=== PATIENT | female | born 1985 | race Caucasian/White ===

== ENCOUNTER → 2020-05-04 | Outpatient (CLI) | payer BC, OTHER ==
[2020-05-04 20:25] LABS: Total Protein,CSF 28 mg/dL (12-60)
[2020-05-04 21:52] LABS: Appearance,CSF Clear; CSF Tube Number 4; CSF Tube Volume 4; Nucleated Cells, CSF 0 u/L (0-5); Red Blood Cell,CSF 0 u/L (0-10)
[2020-05-06 12:37] LABS: IgG - CSF 1.3 mg/dL (0.0 - 3.4); IgG/Albumin Index (CSF) 0.54 (0.00 - 0.77)
== END | disposition home or self-care (01) ==
LOC: LABWHC1 11:46
PROVIDERS: ATTEND Nurse Practitioner Family
DX: R90.82 White matter disease, unspecified (principal); R42 Dizziness and giddiness; R94.02 Abnormal brain scan
CPT/HCPCS: 36415; 82040; 82042; 82784; 83916; 84157; 86255; 87801; 88108; 89050

== ENCOUNTER 2020-05-05 17:52 | Observation (INO) | payer BC, OTHER ==
[2020-05-05] MEDS ORDERED: SODIUM CHLORIDE 0.9% 1,000 ML IV STA ×3 (19:01→20:46)
[2020-05-05] MEDS ORDERED: CAFFEINE CITRATE 500 MG in DEXTROSE 5% IN WATER 50 ML IVPB STA ×2 (19:03)
[2020-05-05] MEDS ORDERED: KETOROLAC 15 MG/ML 1 ML VIAL IVP STA (19:04)
[2020-05-05] MEDS ORDERED: ORPHENADRINE 30 MG/ML 2 ML VIAL IVP STA (19:05)
--- NOTE | 2020-05-05 19:14 | ED ---
Back Pain HPI - General Source: patient, RN notes reviewed Limitations: no limitations - History of Present Illness MD Complaint: back pain, other <Tyree Austin - Last Filed: 05/05/20 21:15> <Andrew Orta - Last Filed: 05/05/20 23:01> - General Chief Complaint: Back Pain/Injury Stated Complaint: back pain/head ache Time Seen by Provider: 05/05/20 18:45 - History of Present Illness Initial Comments: This is a 35-year-old female presents with complaints of severe back pain and headache tonight. She states she had a lumbar puncture done yesterday and a workup for ruling out multiple sclerosis. She states she has severe pain and almost totally back labor starts radiate down both legs no fevers chills or sweats she states the pain is about 7 or 8/10 severity however. Taking a lot of fluids and caffeine without results are relief she denies any kidney stones any hematuria or last missed her period was one week ago. No other complaints or modifying factors this time (Tyree Austin) - Related Data Allergies Allergy/AdvReac Type Severity Reaction Status Date / Time Penicillins Allergy Unknown Verified 05/05/20 22:18 Childhood Review of Systems ROS Other: All systems not noted in ROS Statement are negative. <Tyree Austin - Last Filed: 05/05/20 21:15> ROS Other: All systems not noted in ROS Statement are negative. <Andrew Orta - Last Filed: 05/05/20 23:01> ROS Statement: Those systems with pertinent positive or pertinent negative responses have been documented in the HPI. Past Medical History Additional Past Medical History / Comment(s): being worked up for MS. History of Any Multi-Drug Resistant Organisms: None Reported Past Surgical History: Adenoidectomy, Section, Cholecystectomy, T onsillectomy Additional Past Surgical History / Comment(s): eye surgery Smoking Status: Current some day smoker Past Alcohol Use History: None Reported Past Drug Use History: None Reported <Tyree Austin - Last Filed: 05/05/20 21:15> General Exam Limitations: no limitations General appearance: alert, anxious, in distress Head exam: Present: atraumatic, normocephalic, normal inspection Eye exam: Present: normal appearance, PERRL, EOMI. Absent: scleral icterus, conjunctival injection, periorbital swelling ENT exam: Present: normal exam, mucous membranes moist Neck exam: Present: normal inspection. Absent: tenderness, meningismus, lymphadenopathy Respiratory exam: Present: normal lung sounds bilaterally. Absent: respiratory distress, wheezes, rales, rhonchi, stridor Cardiovascular Exam: Present: regular rate, normal rhythm, normal heart sounds. Absent: systolic murmur, diastolic murmur, rubs, gallop, clicks GI/Abdominal exam: Present: soft, normal bowel sounds. Absent: distended, tenderness, guarding, rebound, rigid Extremities exam: Present: normal inspection, full ROM, normal capillary refill. Absent: tenderness, pedal edema, joint swelling, calf tenderness Back exam: Present: full ROM, tenderness (ecchymosis over the lumbar site appears be L4 region. Sometenderness palpation some mild tenderness over the upper gluteus bilaterally no step-off no crepitation no formed by no drainage seen.) Neurological exam: Present: alert, oriented X3, CN II-XII intact Psychiatric exam: Present: normal affect, normal mood Skin exam: Present: warm, dry, intact, normal color. Absent: rash <Tyree Austin - Last Filed: 05/05/20 21:15> - General Exam Comments Initial Comments: this a well-developed well-nourished awake alert oriented 3 female (Tyree Austin) Course <Tyree Austin - Last Filed: 05/05/20 21:15> Vital Signs 05/05/20 05/05/20 18:08 22:11 Temperature 98.8 F Pulse Rate 100 63 Respiratory 18 16 Rate Blood Pressure 132/71 121/82 O2 Sat by Pulse 97 100 Oximetry - Reevaluation(s) Reevaluation #1: 05/05/20 21:15 The patient's care is endorsed to Dr. Orta at our shift change (Tyree Austin) Medical Decision Making - Lab Data Result diagrams: 05/05/20 19:26 05/05/20 19:26 <Tyree Autsin - Last Filed: 05/05/20 21:15> - Lab Data Result diagrams: 05/05/20 19:26 05/05/20 19:26 <Andrew Orta - Last Filed: 05/05/20 23:01> - Medical Decision Making Patient reevaluated and no significant improvement despite several medications. Case discussed with anesthesia Dr. Davies recommends admission and they can do blood patch the morning. Case also discussed with Dr. Quezada will admit covering for Dr. Murray and does request IV fluids at 200. (Andrew Orta) - Lab Data Lab Results 05/05/20 05/05/20 05/05/20 Range/Units 19:26 19:26 19:26 WBC 12.2 H (3.8-10.6) k/uL RBC 4.78 (3.80-5.40) m/uL Hgb 15.0 (11.4-16.0) gm/dL Hct 45.9 (34.0-46.0) % MCV 96.0 (80.0-100.0) fL MCH 31.3 (25.0-35.0) pg MCHC 32.6 (31.0-37.0) g/dL RDW 12.1 (11.5-15.5) % Plt Count 192 (150-450) k/uL Neutrophils % 72 % Lymphocytes % 18 % Monocytes % 6 % Eosinophils % 2 % Basophils % 1 % Neutrophils # 8.8 H (1.3-7.7) k/uL Lymphocytes # 2.2 (1.0-4.8) k/uL Monocytes # 0.7 (0-1.0) k/uL Eosinophils # 0.2 (0-0.7) k/uL Basophils # 0.1 (0-0.2) k/uL Sodium 136 L (137-145) mmol/L Potassium 4.9 (3.5-5.1) mmol/L Chloride 106 (98-107) mmol/L Carbon Dioxide 25 (22-30) mmol/L Anion Gap 5 mmol/L BUN 18 H (7-17) mg/dL Creatinine 0.65 (0.52-1.04) mg/dL Est GFR (CKD-EPI)AfAm >90 (>60 ml/min/1.73 sqM) Est GFR (CKD-EPI)NonAf >90 (>60 ml/min/1.73 sqM) Glucose 108 H (74-99) mg/dL Calcium 9.6 (8.4-10.2) mg/dL Magnesium 2.1 (1.6-2.3) mg/dL Total Bilirubin 0.8 (0.2-1.3) mg/dL AST 23 (14-36) U/L ALT 10 (4-34) U/L Alkaline Phosphatase 47 (38-126) U/L Creatine Kinase 41 (30-135) U/L Total Protein 7.4 (6.3-8.2) g/dL Albumin 4.2 (3.5-5.0) g/dL Urine Color Yellow Urine Appearance Cloudy H (Clear) Urine pH 7.0 (5.0-8.0) Ur Specific [place] 1.026 (1.001-1.035) Urine Protein Trace H (Negative) Urine Glucose (UA) Negative (Negative) Urine Ketones Negative (Negative) Urine Blood Trace H (Negative) Urine Nitrite Negative (Negative) Urine Bilirubin Negative (Negative) Urine Urobilinogen <2.0 (<2.0) mg/dL Ur Leukocyte Esterase Negative (Negative) Urine RBC 2 (0-5) /hpf Urine WBC 3 (0-5) /hpf Ur Squamous Epith Cells 6 H (0-4) /hpf Amorphous Sediment Few H (None) /hpf Urine Mucus Rare H (None) /hpf Disposition <Tyree Austin - Last Filed: 05/05/20 21:15> Is patient prescribed a controlled substance at d/c from ED?: No Decision Time: 23:01 <Andrew Orta - Last Filed: 05/05/20 23:01> Clinical Impression: Spinal headache Disposition: ADMITTED IP TO THIS HOSP Referrals: Fritz Murray MD [Primary Care Provider] - 1-2 days
[2020-05-05] MEDS ORDERED: CAFFEINE-SODIUM BENZOATE 500 MG in SODIUM CHLORIDE 0.9% 1,000 ML IVPB ONE (19:15)
[2020-05-05 19:49] LABS: Basophils # (A) 0.1 k/uL (0-0.2); Basophils % (A) 1 %; Eosinophils # (A) 0.2 k/uL (0-0.7); Eosinophils % (A) 2 %; HCT 45.9 % (34.0-46.0); Lymphocytes # (A) 2.2 k/uL (1.0-4.8); Lymphocytes % (A) 18 %; MCH 31.3 pg (25.0-35.0); MCHC 32.6 g/dL (31.0-37.0); Mean Platelet Volume 8.9; Monocytes # (A) 0.7 k/uL (0-1.0); Monocytes % (A) 6 %; Neutrophils # (A) 8.8 k/uL (1.3-7.7); Neutrophils % (A) 72 %; Platelet Count 192 k/uL (150-450); RBC 4.78 m/uL (3.80-5.40); RDW 12.1 % (11.5-15.5); WBC 12.2 k/uL (3.8-10.6)
[2020-05-05 20:03] LABS: ALT 10 U/L (4-34); AST 23 U/L (14-36); African American GFR (CKD) >90 (>60 ml/min/1.73 sqM); Albumin 4.2 g/dL (3.5-5.0); Alkaline Phosphatase 47 U/L (38-126); Anion Gap 5 mmol/L; Blood Urea Nitrogen 18 mg/dL (7-17); Calcium 9.6 mg/dL (8.4-10.2); Carbon Dioxide 25 mmol/L (22-30); Chloride 106 mmol/L (98-107); Creatine Kinase 41 U/L (30-135); Glucose 108 mg/dL (74-99); Magnesium 2.1 mg/dL (1.6-2.3); Non-African American GFR(CKD) >90 (>60 ml/min/1.73 sqM); Sodium 136 mmol/L (137-145); Total Bilirubin 0.8 mg/dL (0.2-1.3); Total Protein 7.4 g/dL (6.3-8.2)
[2020-05-05 20:06] LABS: Potassium 4.9 mmol/L (3.5-5.1)
[2020-05-05 20:17] LABS: Amorphous Sediment,Urine Few /hpf; Appearance,Urine Cloudy (Clear); Bilirubin,Urine Negative (Negative); Blood,Urine Trace (Negative); Color,Urine Yellow; Glucose,Urine (UA) Negative (Negative); Ketones,Urine Negative (Negative); Leukocyte Esterase,Urine Negative (Negative); Mucus,Urine Rare /hpf; Nitrite,Urine Negative (Negative); Protein,Urine Trace (Negative); RBC,Urine 2 /hpf (0-5); Specific Gravity,Urine 1.026 (1.001-1.035); Squamous Epithelial Cell,Urine 6 /hpf (0-4); Urobilinogen,Urine <2.0 mg/dL (<2.0); WBC,Urine 3 /hpf (0-5)
--- NOTE | 2020-05-05 20:31 | CT ---
EXAMINATION TYPE: CT lumbar spine wo con DATE OF EXAM: 05/05/2020 COMPARISON: None HISTORY: Low back pain post lumbar puncture done yesterday. CT DLP: 1120.6 mGycm Automated exposure control for dose reduction was used. Lumbar vertebra have normal spacing and alignment. Posterior elements are intact. Facet joints appear normal. There is no compression fracture. There is no lumbar paraspinal mass. There is no evidence of lumbar disc herniation. I see no sign of spinal stenosis. The sacroiliac join ts appear intact. Sacrum is intact. There is no evidence of bony destructive process. IMPRESSION: Negative CT scan of the lumbar spine.
[2020-05-05] MEDS ORDERED: HYDROmorphone 1 MG/ML 1 ML SYRINGE IVP STA (21:24)
[2020-05-05] MEDS ORDERED: NALOXONE 0.4 MG/ML 1 ML VIAL IV PRN (23:01)
[2020-05-05] MEDS ORDERED: ALBUTEROL NEBULIZED 2.5 MG/3 ML INHALATION PRN (23:45)
[2020-05-06] MEDS ORDERED: MELATONIN 3 MG TABLET PO SCH (00:45)
[2020-05-06] MEDS: SODIUM CHLORIDE 0.9% 1,000 ML IV SCH ×4 (01:16→14:55)
[2020-05-06] MEDS: HYDROmorphone 1 MG/ML 1 ML SYRINGE IVP PRN ×2 (02:30→09:45)
[2020-05-06 08:56] VITALS: BP 101/67; PULSE 69; RESP 16; TEMP 97.7
[2020-05-06] MEDS ORDERED: LORATADINE 10 MG TAB PO SCH (09:00)
[2020-05-06] MEDS ORDERED: NICOTINE 7MG/24HR PATCH TRANSDERM SCH (09:00)
[2020-05-06] MEDS ORDERED: BUTALB PO PRN (09:00)
[2020-05-06] MEDS ORDERED: CAFFEINE PO PRN (09:00)
[2020-05-06] MEDS ORDERED: IBUPROFEN 800 MG TAB PO PRN (09:00)
[2020-05-06] MEDS ORDERED: PANTOPRAZOLE 40 MG TABLET PO PRN (09:00)
[2020-05-06] MEDS ORDERED: ACETAMINOPHEN PO PRN (09:00)
--- NOTE | 2020-05-06 10:09 | P.CONS ---
History of Present Illness - Reason for Consult Consult date: 05/06/20 - Chief Complaint Headache - History of Present Illness This is a 35-year-old female with history of chronic headache that started about 6 months ago. The patient also was having neurologic symptoms in the right side of her body with numbness and tingling in the arm and leg Weakness. The Patient Received Occipital Nerve Block Bilaterally by Dr. Guerrier Which Has Not Helped Her Headache. 2 Days Ago She Underwent Lumbar Puncture by Dr. Bustos. The patient states that during the lumbar puncture she felt severe frontal headache which continued until yesterday. The patient came to the ER and was given caffeine and IV fluid and was admitted for overnight observation and possible epidural blood patch. I interviewed the patient today her headache has been getting better however she's been using Dilaudid IV for this headache. It looks like there is no positional component of this headache at this point I spoke with the patient for about 15 minutes in the sitting up position with no c omplaints of increasing headache in this position. The patient also complains of low back pain which most likely is due to the irritation from the multiple attempts of lumbar puncture at Dr. Anaya's office. The patient denies any diplopia, or tinnitus. She describes the quality of her headache now for several to the quality of her neck before the lumbar puncture. Past Medical History Additional Past Medical History / Comment(s): being worked up for MS. History of Any Multi-Drug Resistant Organisms: None Reported Past Surgical History: Adenoidectomy, Section, Cholecystectomy, Tonsillectomy Additional Past Surgical History / Comment(s): eye surgery Past Anesthesia/Blood Transfusion Reactions: No Reported Reaction Smoking Status: Current some day smoker Past Alcohol Use History: None Reported Past Drug Use History: None Reported Medications and Allergies Home Medications Medication Instructions Recorded Confirmed Type Albuterol Sulfate [Proair Hfa] 1 - 2 puff INHALATION RT-Q6H PRN 05/05/20 05/05/20 History Amitriptyline HCl [Elavil] 25 mg PO HS 05/05/20 05/05/20 History Butalb/Acetaminophen/Caffeine 1 cap PO DAILY PRN 05/05/20 05/05/20 History [Esgic 50-325-40 Capsule] Ibuprofen [Motrin] 800 mg PO Q8H PRN 05/05/20 05/05/20 History Loratadine 10 mg PO DAILY 05/05/20 05/05/20 History Montelukast Sodium [Singulair] 10 mg PO HS 05/05/20 05/05/20 History Omeprazole 40 mg PO DAILY PRN 05/05/20 05/05/20 History Allergies Allergy/AdvReac Type Severity Reaction Status Date / Time Penicillins Allergy Unknown Verified 05/05/20 22:18 Childhood Physical Exam Vitals: Vital Signs Temp Pulse Pulse Resp BP BP Pulse Ox 05/06/20 08:51 97.7 F 69 16 101/67 99 05/06/20 03:00 97.8 F 56 L 15 101/63 99 05/06/20 01:32 57 L 16 05/05/20 23:47 62 16 113/64 96 05/05/20 23:30 98.0 F 57 L 16 107/64 100 05/05/20 22:11 63 16 121/82 100 05/05/20 18:08 98.8 F 100 18 132/71 97 Intake and Output 05/05/20 05/06/20 05/06/20 22:59 06:59 14:59 Intake Total 220 Balance 220 Intake: Intake, IV Titration 100 Amount Sodium Chloride 0.9% 1, 100 000 ml @ 200 mls/hr IV . Q5H [facility] Rx#:[id number] Oral 120 Other: Voiding Method Toilet Toilet # Voids 0 Weight 81.647 kg 81.647 kg The patient has normal muscle strength in the upper extremities bilaterally. Positive tenderness in the cervical paravertebral musculature bilaterally. Positive to admission skin bruising in the lumbar area may be due to multiple attempts of lumbar puncture Positive tenderness in the lumbar paravertebral musculature around the skin bruising - Constitutional General appearance: average body habitus - Psychiatric Psychiatric: appropriate affect, intact judgment & insight Results CBC & Chem 7: 05/05/20 19:26 05/05/20 19:26 Labs: Abnormal Lab Results - Last 24 Hours (Table) 05/05/20 05/05/20 05/05/20 Range/Units 19:26 19:26 19:26 WBC 12.2 H (3.8-10.6) k/uL Neutrophils # 8.8 H (1.3-7.7) k/uL Sodium 136 L (137-145) mmol/L BUN 18 H (7-17) mg/dL Glucose 108 H (74-99) mg/dL Urine Appearance Cloudy H (Clear) Urine Protein Trace H (Negative) Urine Blood Trace H (Negative) Ur Squamous Epith Cells 6 H (0-4) /hpf Amorphous Sediment Few H (None) /hpf Urine Mucus Rare H (None) /hpf Assessment and Plan Plan: This is a 35-year-old lady with history of chronic headache and recent lumbar puncture to rule out MS. There is no significant positional component to this headache. There is questionable postdural puncture headache. At this point I recommend continuing with IV hydration and oral Tylenol or ibuprofen for her headache. It looks like her headache has been getting better. There are no associated neurologic changes recently after her lumbar puncture. The patient may get discharged with oral Fioricet and if her headache is not unabating then she can follow up with her neurologist. I thank you for the referral
[2020-05-06] MEDS ORDERED: AMITRIPTYLINE HCL 25 MG TAB PO SCH (21:00)
[2020-05-06] MEDS ORDERED: MONTELUKAST 10 MG TAB PO SCH (21:00)
--- NOTE | 2020-05-06 22:40 | P.HPIM ---
History of Present Illness H&P Date: 05/06/20 Chief Complaint: Headache History of presenting complaint: This is a 35-year-old patient of Dr. Murray. Patient recently seen by me at [facility]. Patient is having gait dysfunction. Intermittent headache. Patient is referred to neurologist Dr. Taylor... 2 days ago patient had a lumbar puncture. Patient yesterday having much worse headache. Special sitting up. Patient the baseline has some intermittent headache. Patient started IV fluids in the ER. Anesthesia was consulted for a possible blood patch. No fever no chills. Rest of the patient this morning patient's headache is exactly better. Patient stated that she was due for a MRA of the neck as an outpatient but because of difficult IV access taken underway done. Patient is able to get to the bathroom today feeling significantly improved. No nausea no vomiting. Patient had a breakfast this morning. Review of systems: GEN.: None EYES: None HEENT: Headache positional NECK: None RESPIRATORY: None CARDIOVASCULAR: None GASTROINTESTINAL: None GENITOURINARY: None MUSCULOSKELETAL: None LYMPHATICS: None HEMATOLOGICAL: None PSYCHIATRY: None NEUROLOGICAL: Gait dysfunction Past medical history to include: Neurological disorder being worked up. Social history: Patient currently living with her boyfriend's brother. Her boyfriend is incarcerated. Smoking a pack a day. No alcohol. Patient is employed denies any recreational drug use. Family history: Reviewed, noncontributory to presentation Physical examination: VITAL SIGNS: 98.8, 100, 18, 132/71, 97% on room air-upon presentation GENERAL: BMI 29.1, sitting up, comfortable. EYES: Pupils equal. Conjunctiva normal. HEENT: External appearance of nose and ears normal, oral cavity grossly normal. NECK: JVD not raised; masses not palpable. HEART: First and second heart sounds are normal; no edema. LUNGS: Respiratory rate normal; clear to auscultation. ABDOMEN: Soft, nontender, liver spleen not palpable, no masses palpable. PSYCH: Alert and oriented x3; mood and affect normal. NEUROLOGICAL: [Cranial nerves grossly intact; no facial asymmetry, patient does walks a bit unsteady. LYMPHATICS: No lymph nodes palpable in the axilla and neck INVESTIGATIONS, reviewed in the clinical context: White count 12.2 hemoglobin 15 platelets 192 potassium 4.9 creatinine 0.65 Computed tomography scan lumbar spine-negative Assessment: -Post lumbar puncture headache. Started IV fluids in the ER. Doing better this morning. Patient is significantly feeling better. -Chronic nicotine dependence patient cigarette smoker -Neurological disorder workup in place by neurology as an outpatient Plan: Home medications to be continued. Care was discussed with the patient. And questionably. It does BE discharged home later tomorrow. Told the nurse to contact neurologist office to let them know patient was here. Patient does not need a blood patch anymore. She significantly better Past Medical History Additional Past Medical History / Comment(s): being worked up for MS. History of Any Multi-Drug Resistant Organisms: None Reported Past Surgical History: Adenoidectomy, Section, Cholecystectomy, Tonsill ectomy Additional Past Surgical History / Comment(s): eye surgery Past Anesthesia/Blood Transfusion Reactions: No Reported Reaction Smoking Status: Current some day smoker Past Alcohol Use History: None Reported Past Drug Use History: None Reported Medications and Allergies Home Medications Medication Instructions Recorded Confirmed Type Albuterol Sulfate [Proair Hfa] 1 - 2 puff INHALATION RT-Q6H PRN 05/05/20 05/05/20 History Amitriptyline HCl [Elavil] 25 mg PO HS 05/05/20 05/05/20 History Butalb/Acetaminophen/Caffeine 1 cap PO DAILY PRN 05/05/20 05/05/20 History [Esgic 50-325-40 Capsule] Ibuprofen [Motrin] 800 mg PO Q8H PRN 05/05/20 05/05/20 History Loratadine 10 mg PO DAILY 05/05/20 05/05/20 History Montelukast Sodium [Singulair] 10 mg PO HS 05/05/20 05/05/20 History Omeprazole 40 mg PO DAILY PRN 05/05/20 05/05/20 History Nicotine 7Mg/24Hr Patch [Habitrol] 1 patch TRANSDERM DAILY patch 05/06/20 Rx Allergies Allergy/AdvReac Type Severity Reaction Status Date / Time Penicillins Allergy Unknown Verified 05/05/20 22:18 Childhood Physical Exam Vitals: Vital Signs Temp Pulse Pulse Resp BP BP Pulse Ox 05/06/20 08:51 97.7 F 69 16 101/67 99 05/06/20 03:00 97.8 F 56 L 15 101/63 99 05/06/20 01:32 57 L 16 05/05/20 23:47 62 16 113/64 96 05/05/20 23:30 98.0 F 57 L 16 107/64 100 Intake and Output 05/06/20 05/06/20 05/06/20 06:59 14:59 22:59 Intake Total 220 Balance 220 Intake: Intake, IV Titration 100 Amount Sodium Chloride 0.9% 1, 100 000 ml @ 200 mls/hr IV . Q5H [facility] Rx#:[id number] Oral 120 Other: Voiding Method Toilet Toilet # Voids 0 Weight 81.647 kg Results CBC & Chem 7: 05/05/20 19:26 05/05/20 19:26 Thrombosis Risk Factor Assmnt - Choose All That Apply Each Factor Represents 1 point: Obesity (BMI >25) Thrombosis Risk Factor Assessment Total Risk Factor Score: 1 Thrombosis Risk Factor Assessment Level: Low Risk
--- NOTE | 2020-05-06 22:42 | P.DS ---
Providers Date of admission: 05/05/20 23:01 Expected date of discharge: 05/06/20 Attending physician: Mikhail Quezada Consults: 05/05/20 23:03 anesthesia [Consult to Anesthesia] Routine Consulting Provider: Anesthesia,Services Consult Reason/Comments: Blood patch Primary care physician: Fritz Murray [facility] Course: Chief Complaint: Headache History of presenting complaint: This is a 35-year-old patient of Dr. Murray. Patient recently seen by me at [facility]. Patient is having gait dysfunction. Intermittent headache. Patient is referred to neurologist Dr. Taylor... 2 days ago patient had a lumbar puncture. Patient yesterday having much worse headache. Special sitting up. Patient the baseline has some intermittent headache. Patient started IV fluids in the ER. Anesthesia was consulted for a possible blood patch. No fever no chills. Rest of the patient this morning patient's headache is exactly better. Patient stated that she was due for a MRA of the neck as an outpatient but because of difficult IV access taken underway done. Patient is able to get to the bathroom today feeling significantly improved. No nausea no vomiting. Patient had a breakfast this morning. Patient doing much better. Headache which improved. Up to the bathroom. Discussed with the patient. She'll follow with the neurologist. Nurse will inform patient neurologist. Does not need a blood patch. Consultation: Anesthesiologist Physical examination: VITAL SIGNS: 98.8, 100, 18, 132/71, 97% on room air-upon presentation GENERAL: BMI 29.1, sitting up, comfortable. EYES: Pupils equal. Conjunctiva normal. HEENT: External appearance of nose and ears normal, oral cavity grossly normal. NECK: JVD not raised; masses not palpable. HEART: First and second heart sounds are normal; no edema. LUNGS: Respiratory rate normal; clear to auscultation. ABDOMEN: Soft, nontender, liver spleen not palpable, no masses palpable. PSYCH: Alert and oriented x3; mood and affect normal. NEUROLOGICAL: [Cranial nerves grossly intact; no facial asymmetry, patient does walks a bit unsteady. INVESTIGATIONS, reviewed in the clinical context: White count 12.2 hemoglobin 15 platelets 192 potassium 4.9 creatinine 0.65 Computed tomography scan lumbar spine-negative Assessment: -Post lumbar puncture headache. Started IV fluids in the ER. Doing better this morning. Patient is significantly feeling better. -Chronic nicotine dependence patient cigarette smoker -Neurological disorder workup in place by neurology as an outpatient and- Chronic intermittent cephalgia, cause unknown Disposition: Home Plan - Discharge Summary Discharge Rx Participant: No New Discharge Prescriptions: New Nicotine 7Mg/24Hr Patch [Habitrol] 1 patch TRANSDERM DAILY patch Continue Omeprazole 40 mg PO DAILY PRN PRN Reason: ACID REFLUX Albuterol Sulfate [Proair Hfa] 1 - 2 puff INHALATION RT-Q6H PRN PRN Reason: Shortness Of Breath Montelukast Sodium [Singulair] 10 mg PO HS Loratadine 10 mg PO DAILY Ibuprofen [Motrin] 800 mg PO Q8H PRN PRN Reason: Pain Butalb/Acetaminophen/Caffeine [Esgic 50-325-40 Capsule] 1 cap PO DAILY PRN PRN Reason: Migraine Headache Amitriptyline HCl [Elavil] 25 mg PO HS Discharge Medication List Albuterol Sulfate [Proair Hfa] 1 - 2 puff INHALATION RT-Q6H PRN 05/05/20 [History] Amitriptyline HCl [Elavil] 25 mg PO HS 05/05/20 [History] Butalb/Acetaminophen/Caffeine [Esgic 50-325-40 Capsule] 1 cap PO DAILY PRN 05/05/20 [History] Ibuprofen [Motrin] 800 mg PO Q8H PRN 05/05/20 [History] Loratadine 10 mg PO DAILY 05/05/20 [History] Montelukast Sodium [Singulair] 10 mg PO HS 05/05/20 [History] Omeprazole 40 mg PO DAILY PRN 05/05/20 [History] Nicotine 7Mg/24Hr Patch [Habitrol] 1 patch TRANSDERM DAILY patch 05/06/20 [Rx] Follow up Appointment(s)/Referral(s): Fritz Murray MD [Primary Care Provider] - 1-2 days Mala Anaya MD [Medical Doctor] - 1-2 Days Activity/Diet/Wound Care/Special Instructions: MRA of Carotids at [facility] MRI rescheduled for 05/20/20 at 0930. Please arrive by 0910. Do not wear any metal to appointment. Discharge Disposition: HOME SELF-CARE
== END 2020-05-06 15:00 | disposition home or self-care (01) ==
LOC: EC 17:52 → 3NCARDOBS 23:01
PROVIDERS: ADMIT Hospitalist; ATTEND Hospitalist
DX: G97.1 Other reaction to spinal and lumbar puncture (principal); R26.9 Unspecified abnormalities of gait and mobility; F17.210 Nicotine dependence, cigarettes, uncomplicated; Y84.4 Aspiration of fluid as the cause of abnormal reaction of the patient, or of later complication, without mention of misadventure at the time of the procedure; Z79.899 Other long term (current) drug therapy
CPT/HCPCS: 96376 ×2; 96374; 96375; 99284; 36415; 80053; 82550; 83735; 85025; 81001; 72131; G0378 ×2; S4990; J2360; J1170 ×2; J1885

== ENCOUNTER 2021-06-03 14:03 | Emergency (ER) | payer OTHER ==
--- NOTE | 2021-06-03 16:27 | ED ---
General Adult HPI - General Chief complaint: Upper Respiratory Infection Stated complaint: wants covid test Time Seen by Provider: 06/03/21 15:43 Source: patient Mode of arrival: ambulatory Limitations: no limitations - History of Present Illness Initial comments: 36-year-old female presents to the emergency room for a COVID-19 test. Patient was exposed last week and presented to the emergency room for testing. Denies any symptoms aside from chronic headaches. Denies shortness of breath or fevers.Patient has no other complaints at this time including shortness of breath, chest pain, abdominal pain, nausea or vomiting, headache, or visual changes. - Related Data Home Medications Medication Instructions Recorded Confirmed Albuterol Sulfate [Proair Hfa] 1 - 2 puff INHALATION RT-Q6H PRN 05/05/20 05/05/20 Amitriptyline HCl [Elavil] 25 mg PO HS 05/05/20 05/05/20 Butalb/Acetaminophen/Caffeine 1 cap PO DAILY PRN 05/05/20 05/05/20 [Esgic 50-325-40 Capsule] Ibuprofen [Motrin] 800 mg PO Q8H PRN 05/05/20 05/05/20 Loratadine 10 mg PO DAILY 05/05/20 05/05/20 Montelukast Sodium [Singulair] 10 mg PO HS 05/05/20 05/05/20 Omeprazole 40 mg PO DAILY PRN 05/05/20 05/05/20 Previous Rx's Medication Instructions Recorded Nicotine 7Mg/24Hr Patch [Habitrol] 1 patch TRANSDERM DAILY patch 05/06/20 Allergies Allergy/AdvReac Type Severity Reaction Status Date / Time Penicillins Allergy Unknown Verified 06/03/21 14:11 Childhood Review of Systems ROS Statement: Those systems with pertinent positive or pertinent negative responses have been documented in the HPI. ROS Other: All systems not noted in ROS Statement are negative. Past Medical History Past Medical History: CVA/TIA Additional Past Medical History / Comment(s): being worked up for MS. History of Any Multi-Drug Resistant Organisms: None Reported Past Surgical History: Adenoidectomy, Section, Cholecystectomy, Tonsillectomy Additional Past Surgical History / Comment(s): eye surgery Past Anesthesia/Blood Transfusion Reactions: No Reported Reaction Past Psychological History: No Psychological Hx Reported Smoking Status: Current some day smoker Past Alcohol Use History: None Reported Past Drug Use History: None Reported General Exam Limitations: no limitations General appearance: alert, in no apparent distress Head exam: Present: atraumatic Eye exam: Present: normal appearance, PERRL, EOMI. Absent: scleral icterus, conjunctival injection ENT exam: Present: normal exam, mucous membranes moist Neck exam: Present: normal inspection, full ROM. Absent: tenderness Respiratory exam: Present: normal lung sounds bilaterally. Absent: respiratory distress, wheezes Cardiovascular Exam: Present: regular rate, normal rhythm, normal heart sounds GI/Abdominal exam: Present: soft, normal bowel sounds. Absent: distended, tenderness Course Vital Signs 06/03/21 14:08 Temperature 98.6 F Pulse Rate 60 Respiratory 20 Rate Blood Pressure 110/72 O2 Sat by Pulse 96 Oximetry Medical Decision Making - Medical Decision Making COVID-19 test is negative. Patient to be discharged home and return for any worsening symptoms - Lab Data Lab Results 06/03/21 Range/Units 14:19 Coronavirus (PCR) Not Detected (Not Detectd) Disposition Clinical Impression: Lab test negative for COVID-19 virus Disposition: HOME SELF-CARE Condition: Good Instructions (If sedation given, give patient instructions): Coronavirus Disease 2019 (COVID-19) Is patient prescribed a controlled substance at d/c from ED?: No Referrals: Fritz Murray MD [Primary Care Provider] - 1-2 days Time of Disposition: 16:27
[2021-06-03 16:41] VITALS: BP 129/78; PULSE 69; RESP 16; TEMP 98.5
== END 2021-06-03 16:41 | disposition home or self-care (01) ==
LOC: EC 14:03
DX: Z20.822 Contact with and (suspected) exposure to COVID-19 (principal); F17.200 Nicotine dependence, unspecified, uncomplicated; Z88.0 Allergy status to penicillin; Z86.73 Personal history of transient ischemic attack (TIA), and cerebral infarction without residual deficits; Z90.49 Acquired absence of other specified parts of digestive tract
CPT/HCPCS: 87635; 99282

== ENCOUNTER → 2021-09-27 | Outpatient (CLI) | payer OTHER ==
--- NOTE | 2021-09-28 02:19 | MR ---
EXAMINATION TYPE: MR hip RT wo con DATE OF EXAM: 09/27/2021 COMPARISON: None HISTORY: Right hip pain S/P fall on ice 2 weeks ago. Multiplanar multiecho imaging of the right hip without contrast. The pelvic ring is intact. The proximal right femur and hip joint are intact. Acetabulum is intact. There is no free fluid in the pelvis. No evidence of a pelvic mass. Femoral heads have normal signal pattern. No evidence of avascular necrosis. No evidence of hip joint effusion. IMPRESSION: Negative MR scan of the right hip. No evidence of any significant arthritic disease. No fracture.
--- NOTE | 2021-09-28 02:24 | MR ---
EXAMINATION TYPE: MR knee RT wo con DATE OF EXAM: 09/27/2021 COMPARISON: None HISTORY: Right knee pain S/P fall on ice 2 weeks ago. Multiplanar multiecho imaging of the right knee without contrast. The anterior and posterior cruciate ligaments are intact. The collateral ligaments are intact. There is minimal knee joint effusion. The medial and lateral menisci appear intact. No evidence of a tear. There is no evidence of bone edema. No evidence of a fracture. IMPRESSION: Small knee joint effusion. No evidence of ligamentous or meniscal tear. No fracture.
== END | disposition home or self-care (01) ==
LOC: RADMRIMAIN 16:50
PROVIDERS: ATTEND Physician Assistant
DX: M25.461 Effusion, right knee (principal); S70.01XA Contusion of right hip, initial encounter; W00.0XXA Fall on same level due to ice and snow, initial encounter

== ENCOUNTER → 2022-04-25 | Outpatient (CLI) | payer OTHER ==
--- NOTE | 2022-04-25 13:59 | MM ---
Reason for Exam: Clinical finding. Patient History: Menarche at age 11. First Full-Term at age 24. Maternal grandmother had breast cancer under age 50. Paternal aunt had breast cancer at or over age 50. Maternal aunt had breast cancer. Last menstrual period: 04/02/2022 Risk Values: Monique 5 year model risk: 0.5%. NCI Lifetime model risk: 11.2%. Tissue Density: The breast tissue is heterogeneously dense. This may lower the sensitivity of mammography. Findings: Analyzed By CAD. Heterogenous asymmetric breast tissue in the left breast retroareolar and MLO view and slightly medial on CC view. Overall Assessment: Incomplete: need additional imaging evaluation, BI-RAD 0 Management: Diagnostic Breast Ultrasound of the left breast. Further evaluation with ultrasound imaging of the left breast. A clinical breast exam by your physician is recommended on an annual basis and results should be correlated with mammographic findings. This exam should not preclude additional follow-up of suspicious palpable abnormalities. Results were given to the patient verbally at the time of exam. Electronically signed and approved by: Tyree Tucker DO
--- NOTE | 2022-04-25 14:43 | USB ---
Reason for Exam: Clinical finding. Patient History: Menarche at age 11. First Full-Term at age 24. Maternal grandmother had breast cancer under age 50. Paternal aunt had breast cancer at or over age 50. Maternal aunt had breast cancer. Risk Values: Monique 5 year model risk: 0.5%. NCI Lifetime model risk: 11.2%. Technique: Method: Targeted. Findings: The area of palpable concern of the left breast, the medial section of the breast of the left breast and the axilla of the left breast were scanned. The left breast was imaged on the medial half of the breast including the axilla. There is no suspicious mass. There is a cluster of anechoic cysts versus dilated ducts within the left breast 9:00 4 cm from the nipple measuring 9 x 5 x 9 mm. There is also dense fibroglandular tissue at 10:00 4 cm from the nipple correlating with mammography findings in day. Overall Assessment: Benign, BI-RAD 2 Management: Screening Mammogram of both breasts at age 39. A clinical breast exam by your physician is recommended on an annual basis and results should be correlated with mammographic findings. This exam should not preclude additional follow-up of suspicious palpable abnormalities. ??Results were given to the patient verbally at the time of exam. Electronically signed and approved by: Tyree Tucker DO
== END | disposition home or self-care (01) ==
LOC: RADMAMWWP 13:10
PROVIDERS: ATTEND Family Medicine
DX: R92.8 Other abnormal and inconclusive findings on diagnostic imaging of breast (principal); N63.10 Unspecified lump in the right breast, unspecified quadrant; Z78.0 Asymptomatic menopausal state; Z80.3 Family history of malignant neoplasm of breast
CPT/HCPCS: 77066

== ENCOUNTER → 2024-05-07 | Outpatient (CLI) | payer OTHER ==
--- NOTE | 2024-05-09 07:59 | MM ---
Reason for Exam: Screening (asymptomatic). Last mammogram was performed 2 year(s) and 1 month(s) ago. Patient History: Menarche at age 11. First Full-Term at age 24. Maternal grandmother had breast cancer under age 50. Paternal aunt had breast cancer at or over age 50. Maternal aunt had breast cancer. Last menstrual period: 04/25/2024 Risk Values: Monique 5 year model risk: 0.6%. NCI Lifetime model risk: 11.1%. Prior Study Comparison: 04/25/2022 Bilateral MG diagnostic mammo w CAD [facility], [facility]. Tissue Density: The breasts are heterogeneously dense, which may obscure small masses. Findings: Analyzed By CAD. There is no suspicious group of microcalcifications or new suspicious mass in either breast. Asymmetric tissue within the breast is stable. There is a small cluster of calcifications seen on the MLO view only in the central posterior aspect of the left breast. Recommend spot magnification view and true lateral view. Overall Assessment: Incomplete: need additional imaging evaluation, BI-RAD 0 Management: Diagnostic Mammogram of the left breast. . Patient should continue monthly self-breast exams. A clinical breast exam by your physician is recommended on an annual basis. This exam should not preclude additional follow-up of suspicious palpable abnormalities. Note on Monique scores and lifetime risk: 1. A Monique score greater than 3% is considered moderate risk. If this is the case, consider specialist referral to assess eligibility for a risk reducing agent. 2. If overall lifetime risk for the development of breast cancer is 20% or higher, the patient may qualify for future screening with alternating mammogram and breast MRI. [facility], , 05/09/2024 7:56 AM. Electronically signed and approved by: Fidel Moreira M.D. Radiologis
== END | disposition home or self-care (01) ==
LOC: RADMAMWWP 16:10
PROVIDERS: ATTEND Family Medicine
DX: Z12.31 Encounter for screening mammogram for malignant neoplasm of breast (principal); Z80.3 Family history of malignant neoplasm of breast; R92.333 Mammographic heterogeneous density, bilateral breasts
CPT/HCPCS: 77067

== ENCOUNTER → 2024-05-15 | Outpatient (CLI) | payer OTHER ==
--- NOTE | 2024-05-15 13:57 | MM ---
Reason for Exam: Additional evaluation requested from abnormal screening. Last screening mammogram was performed less than 1 month ago. Patient History: Menarche at age 11. First Full-Term at age 24. Maternal grandmother had breast cancer under age 50. Paternal aunt had breast cancer at or over age 50. Maternal aunt had breast cancer. Risk Values: Monique 5 year model risk: 0.6%. NCI Lifetime model risk: 11.1%. Prior Study Comparison: 04/25/2022 Bilateral MG diagnostic mammo w CAD [facility], [facility]. 05/07/2024 Bilateral MG screening mammo w CAD, [facility]. Tissue Density: Left: There are scattered areas of fibroglandular density. Findings: Analyzed By CAD. The pattern is symmetrical. There are calcifications which have the appearance of skin calcifications. These are on the medial first image tomographic images compatible with skin calcifications. No suspicious groups of microcalcifications, spiculated or lobular masses, architectural distortion or other secondary signs of malignancy are mammographically apparent. Overall Assessment: Benign, BI-RAD 2 Management: Screening Mammogram of both breasts in 1 year. A negative mammogram report should not preclude additional follow up of suspicious palpable abnormalities. Patient should continue monthly self breast exam. A clinical breast exam by your physician is recommended on an annual basis and results should be correlated with mammographic findings. Note on Monique scores and lifetime risk: 1. A Monique score greater than 3% is considered moderate risk. If this is the case, consider specialist referral to assess eligibility for a risk reducing agent. 2. If overall lifetime risk for the development of breast cancer is 20% or higher, the patient may qualify for future screening with alternating mammogram and breast MRI. [facility], , 05/15/2024 1:54 PM. Electronically signed and approved by: Yosi Yeh D.O. Radiologis
== END | disposition home or self-care (01) ==
LOC: RADMAMWWP 13:11
PROVIDERS: ATTEND Family Medicine
DX: R92.8 Other abnormal and inconclusive findings on diagnostic imaging of breast (principal); R92.323 Mammographic fibroglandular density, bilateral breasts; Z80.3 Family history of malignant neoplasm of breast
CPT/HCPCS: 77065; G0279; 77061

== ENCOUNTER 2024-05-17 16:25 | Emergency (ER) | payer OTHER ==
[2024-05-17 16:40] VITALS: RESP 18; TEMP 97.4
--- NOTE | 2024-05-17 17:02 | ED ---
Back Pain HPI - General Chief Complaint: Back Pain/Injury Stated Complaint: L leg pain Time Seen by Provider: 05/17/24 17:02 Source: patient Limitations: no limitations - History of Present Illness Initial Comments: 19-year-old female presenting with chief complaint of left leg and left-sided lower back pain. Patient initially injured herself when she got her leg caught in the door of the blood loss. She was seen at her PCPs office and had a negative x-ray. She was getting an ultrasound done today for possible Iqbal's cyst. Since getting her ultrasound done she has had shooting pain starting near the hip and going down the leg. No swelling of the leg. No deformity. No discoloration. No loss of bowel or bladder control or saddle paresthesia. No new injury or trauma. No chest pain or difficulty breathing. No abdominal pain. No fevers. - Related Data Home Medications Medication Instructions Recorded Confirmed Albuterol Sulfate [Proair Hfa] 1 - 2 puff INHALATION RT-Q6H PRN 05/05/20 05/05/20 Amitriptyline HCl [Elavil] 25 mg PO HS 05/05/20 05/05/20 Butalb/Acetaminophen/Caffeine 1 cap PO DAILY PRN 05/05/20 05/05/20 [Esgic 50-325-40 Capsule] Ibuprofen [Motrin] 800 mg PO Q8H PRN 05/05/20 05/05/20 Loratadine 10 mg PO DAILY 05/05/20 05/05/20 Montelukast Sodium [Singulair] 10 mg PO HS 05/05/20 05/05/20 Omeprazole 40 mg PO DAILY PRN 05/05/20 05/05/20 Previous Rx's Medication Instructions Recorded Nicotine 7Mg/24Hr Patch [Habitrol] 1 patch TRANSDERM DAILY patch 05/06/20 Ibuprofen [Motrin] 800 mg PO Q8H PRN #30 tab 05/17/24 Allergies Allergy/AdvReac Type Severity Reaction Status Date / Time Penicillins Allergy Unknown Verified 05/17/24 16:36 Childhood Review of Systems ROS Statement: Those systems with pertinent positive or pertinent negative responses have been documented in the HPI. ROS Other: All systems not noted in ROS Statement are negative. Past Medical History Past Medical History: CVA/TIA Additional Past Medical History / Comment(s): being worked up for MS. History of Any Multi-Drug Resistant Organisms: None Reported Past Surgical History: Adenoidectomy, Section, Cholecystectomy, Tonsillectomy Additional Past Surgical History / Comment(s): eye surgery Past Anesthesia/Blood Transfusion Reactions: No Reported Reaction Past Psychological History: Anxiety Smoking Status: Current some day smoker Past Alcohol Use History: None Reported Past Drug Use History: None Reported General Exam - General Exam Comments Initial Comments: Visual Physical Exam Vital signs reviewed General: Well-appearing, nontoxic, no acute distress. Head: Normocephalic, atraumatic Eyes: PERRLA, EOMI ENT: Airway patent Chest: Nonlabored breathing Skin: No visual rash, normal skin tone Neuro: Alert and oriented 3 Musculoskeletal: No gross abnormalities Limitations: no limitations General appearance: alert, in no apparent distress Head exam: Present: atraumatic, normocephalic, normal inspection Eye exam: Present: normal appearance, EOMI Neck exam: Present: normal inspection. Absent: meningismus Respiratory exam: Absent: respiratory distress Cardiovascular Exam: Present: regular rate Extremities exam: Present: normal inspection, full ROM, normal capillary refill Back exam: Present: normal inspection Neurological exam: Present: alert, oriented X3 Psychiatric exam: Present: normal affect, normal mood Skin exam: Present: warm, dry Course Vital Signs 05/17/24 05/17/24 16:36 19:35 Temperature 97.4 F L Pulse Rate 90 92 Respiratory 18 18 Rate Blood Pressure 152/89 120/80 O2 Sat by Pulse 99 99 Oximetry Medical Decision Making - Medical Decision Making I performed the quick note portion of this visit, electronically signed Brett Day PA-C Was pt. sent in by a medical professional or institution (ERMELINDA Gonzales, WATER QUALITY ASSISTANT, urgent care, hospital, or correction...) When possible be specific @ -No Did you speak to anyone other than the patient for history (EMS, parent, family, police, friend...)? What history was obtained from this source @ -No Did you review nursing and triage notes (agree or disagree)? Why? @ -I reviewed and agree with nursing and triage notes Were old charts reviewed (outside hosp., previous admission, EMS record, old EKG, old radiological studies, urgent care reports/EKG's, correction records)? Report findings @ -No old charts were reviewed Differential Diagnosis (chest pain, altered mental status, abdominal pain women, abdominal pain men, vaginal bleeding, weakness, fever, dyspnea, syncope, headache, dizziness, GI bleed, back pain, seizure, CVA, palpatations, mental health, musculoskeletal)? @ -Differential Musculoskeletal Muscular strain, contusion, ligament sprain, fracture, arthritis, septic arthritis, bursitis, cellulitis, muscle spasm, nerve compression, DVT, arterial occlusion, herpes zoster, electrolyte abnormality, tumor.... This is not meant to be in all inclusive list EKG interpreted by me (3pts min.). @ -As above X-rays interpreted by me (1pt min.). @ -None done CT interpreted by me (1pt min.). @ -None done U/S interpreted by me (1pt. min.). @ -None done What testing was considered but not performed or refused? (CT, X-rays, U/S, labs)? Why? @ -None What meds were considered but not given or refused? Why? @ -None Did you discuss the management of the patient with other professionals (professionals i.e. , PA, WATER QUALITY ASSISTANT, lab, RT, psych nurse, case management social worker, matcher operator, teacher, detention officer, housing case manager)? Give summary @ -No Was smoking cessation discussed for >3mins.? @ -No Was critical care preformed (if so, how long)? @ -No Were there social determinants of health that impacted care today? How? (Juan elessness, low income, unemployed, alcoholism, drug addiction, transportation, low edu. Level, literacy, decrease access to med. care, senior care, rehab)? @ -No Was there de-escalation of care discussed even if they declined (Discuss DNR or withdrawal of care, Hospice)? DNR status @ -No What co-morbidities impacted this encounter? (DM, HTN, Smoking, COPD, CAD, Cancer, CVA, ARF, Chemo, Hep., AIDS, mental health diagnosis, sleep apnea, morbid obesity)? @ -None Was patient admitted / discharged? Hospital course, mention meds given and route, prescriptions, significant lab abnormalities, going to OR and other pertinent info. @ -29-year-old female presenting with chief complaint of pain that radiates from the lower back down the leg. He does have an old injury. No new injury. No red flag symptoms. She is neurovascularly intact. She reports improvement after pain medication. She will follow-up with her PCP. Follow-up with PCP. Report back to ER with any new or worsening symptoms. Discussed return parameters and answered all questions. Patient conveyed verbal understanding and agreed to the plan. I discussed this case in detail with my attending Dr. Michael Undiagnosed new problem with uncertain prognosis? @ -No Drug Therapy requiring intensive monitoring for toxicity (Heparin, Nitro, Insulin, Cardizem)? @ -No Were any procedures done? @ -No Diagnosis/symptom? @ -Radiculopathy Acute, or Chronic, or Acute on Chronic? @ -Acute Uncomplicated (without systemic symptoms) or Complicated (systemic symptoms)? @ -Uncomplicated Side effects of treatment? @ -No Exacerbation, Progression, or Severe Exacerbation? @ -No Poses a threat to life or bodily function? How? (Chest pain, [place], [place], pneumonia, PE, COPD, DKA, ARF, appy, cholecystitis, CVA, Diverticulitis, Homicidal, Suicidal, threat to staff... and all critical care pts) @ -Low likelihood Disposition Clinical Impression: Radiculopathy Disposition: HOME SELF-CARE Condition: Good Instructions (If sedation given, give patient instructions): Lumbar Radiculopathy (ED) Additional Instructions: Follow-up with PCP. Report back to ER with any new or worsening symptoms. Prescriptions: Ibuprofen [Motrin] 800 mg PO Q8H PRN #30 tab PRN Reason: Pain Is patient prescribed a controlled substance at d/c from ED?: No Referrals: Pool Gonzales MD [Primary Care Provider] - 1-2 days Time of Disposition: 20:37
[2024-05-17] MEDS: LIDOCAINE 4% PATCH TOPICAL ONE (19:40)
[2024-05-17] MEDS: DEXAMETHASONE SOD PHOSPHATE 10 MG/ML 1 ML VIAL IM STA (19:42)
[2024-05-17] MEDS: KETOROLAC 15 MG/ML 1 ML VIAL IM STA (19:44)
[2024-05-17] MEDS: ORPHENADRINE 30 MG/ML 2 ML VIAL IM STA (19:46)
[2024-05-17 19:50] VITALS: BP 120/80; PULSE 92
[2024-05-17] MEDS: Acetaminophen-Codeine 300-30mg TAB PO STA (21:40)
== END 2024-05-17 21:43 | disposition home or self-care (01) ==
LOC: EC 16:25
DX: M54.16 Radiculopathy, lumbar region (principal); F17.200 Nicotine dependence, unspecified, uncomplicated; Z88.0 Allergy status to penicillin; Z86.73 Personal history of transient ischemic attack (TIA), and cerebral infarction without residual deficits
CPT/HCPCS: 99282; 96372 ×3; J1100; J2360; J1885

== ENCOUNTER → 2024-05-17 | Outpatient (CLI) | payer OTHER ==
--- NOTE | 2024-05-18 19:04 | US ---
EXAMINATION TYPE: US extremity nonvasculr [facility] DATE OF EXAM: 05/17/2024 COMPARISON: NONE CLINICAL INDICATION: Female, 39 years old with history of M71.20 LEFT KNEE SYNOVIAL CYST OF POPLITEAL SPACE; palp posterior knee after injury TECHNIQUE: several muller scale and color doppler images taken at area of concern FINDINGS: no evidence of a bakers cyst or fluid collections. Patients palpable focal area of pain co rresponds to a possible muscle herniation through the fascial layer. There is a possible muscle herni ation noted in this area. MRI may better delineate this area. IMPRESSION: 1. No suspicious Iqbal's cyst. 2. Fascial layer with low density muscular type echotexture passing through the medial herniation. Co nsider MRI for better evaluation of this area [facility], , 05/18/2024 7:01 PM
== END | disposition home or self-care (01) ==
LOC: RADUSWWP 15:25
PROVIDERS: ATTEND Family Medicine
DX: M71.22 Synovial cyst of popliteal space [Baker], left knee (principal); L98.8 Other specified disorders of the skin and subcutaneous tissue

== ENCOUNTER → 2024-07-10 | Outpatient (CLI) | payer OTHER ==
--- NOTE | 2024-07-10 10:39 | MR ---
EXAMINATION TYPE: MR knee LT wo con DATE OF EXAM: 07/10/2024 COMPARISON: NONE HISTORY: Lt knee pain and swelling for one month after slip and fall injury TECHNIQUE: Multiplanar, multisequence images of the knee is performed without IV contrast. FINDINGS: Slightly suboptimal with artifact particularly on sagittal PD FS images. MEDIAL MENISCUS: Anterior and posterior horns are intact without tear. LATERAL MENISCUS: Anterior and posterior horns are intact without tear. CRUCIATE LIGAMENTS: The anterior and posterior cruciate ligaments are intact and unremarkable. COLLATERAL LIGAMENTS: The medial collateral ligament and lateral collateral ligament complex are inta ct and unremarkable. EXTENSOR MECHANISM: Visualized quadriceps and patellar tendons are intact. EFFUSION: No significant suprapatellar joint effusion. POPLITEAL CYST: No popliteal/pantoja cyst. TRICOMPARTMENT SPACES: Tricompartment joint spaces are preserved. No significant spurring is seen. CARTILAGE: Tricompartmental articular cartilage is maintained. BONE MARROW SIGNAL: No focal abnormal marrow signal is appreciated. OTHER: No additional significant abnormality is appreciated. IMPRESSION: No meniscal or ligamentous tear is seen. [facility], , 07/10/2024 10:37 AM
== END | disposition home or self-care (01) ==
LOC: RADMRIMAIN 07:43
PROVIDERS: ATTEND Family Medicine
DX: J98.59 Other diseases of mediastinum, not elsewhere classified (principal); R93.89 Abnormal findings on diagnostic imaging of other specified body structures

== ENCOUNTER 2024-09-11 18:39 | Emergency (ER) | payer OTHER ==
--- NOTE | 2024-09-11 19:45 | XR ---
EXAMINATION TYPE: XR chest 2V DATE OF EXAM: 09/11/2024 7:40 PM COMPARISON: None TECHNIQUE: XR chest 2V Frontal and lateral views of the chest. CLINICAL INDICATION:Female, 39 years old with history of Chest Pain; FINDINGS: Lungs/Pleura: There is no evidence of pleural effusion, focal consolidation, or pneumothorax. Pulmonary vascularity: Unremarkable. Heart/mediastinum: Cardiomediastinal silhouette is unremarkable. Musculoskeletal: No acute osseous pathology. Other: Cholecystectomy clips in the right upper quadrant. IMPRESSION: No acute cardiopulmonary disease/process. [facility], , 09/11/2024 7:42 PM
[2024-09-11 20:02] LABS: Basophils # (A) 0.1 k/uL (0-0.2); Basophils % (A) 1 %; Eosinophils # (A) 0.3 k/uL (0-0.7); Eosinophils % (A) 3 %; HCT 43.2 % (34.0-46.0); HGB 13.6 gm/dL (11.4-16.0); Lymphocytes # (A) 2.9 k/uL (1.0-4.8); Lymphocytes % (A) 25 %; MCH 28.9 pg (25.0-35.0); MCHC 31.5 g/dL (31.0-37.0); Mean Platelet Volume 6.5; Monocytes # (A) 0.6 k/uL (0-1.0); Monocytes % (A) 5 %; Neutrophils # (A) 7.4 k/uL (1.3-7.7); Neutrophils % (A) 64 %; Platelet Count 283 k/uL (150-450); RDW 12.6 % (11.5-15.5); WBC 11.5 k/uL (3.8-10.6)
[2024-09-11 20:14] LABS: INR 0.9 (<1.2); Partial Thromboplastin Time 24.1 sec (22.0-30.0); Prothrombin Time 10.5 sec (10.0-12.5)
[2024-09-11 20:22] LABS: ALT 34 U/L (4-34); AST 29 U/L (14-36); African American GFR (CKD) >90 (>60 ml/min/1.73 sqM); Albumin 4.3 g/dL (3.5-5.0); Alkaline Phosphatase 75 U/L (38-126); Anion Gap 10 mmol/L; Blood Urea Nitrogen 15 mg/dL (7-17); Calcium 9.5 mg/dL (8.4-10.2); Carbon Dioxide 27 mmol/L (22-30); Chloride 102 mmol/L (98-107); Glucose 85 mg/dL (74-99); Magnesium 1.9 mg/dL (1.6-2.3); Non-African American GFR(CKD) >90 (>60 ml/min/1.73 sqM); Sodium 139 mmol/L (137-145); Total Bilirubin 0.7 mg/dL (0.2-1.3); Total Protein 7.4 g/dL (6.3-8.2)
--- NOTE | 2024-09-11 22:36 | ED ---
Chest Pain HPI - General Chief Complaint: Chest Pain Stated Complaint: chest pain Source: patient Mode of arrival: ambulatory Limitations: no limitations - Related Data Home Medications Medication Instructions Recorded Confirmed Albuterol Sulfate [Proair Hfa] 1 - 2 puff INHALATION RT-Q6H PRN 05/05/20 05/05/20 Amitriptyline HCl [Elavil] 25 mg PO HS 05/05/20 05/05/20 Butalb/Acetaminophen/Caffeine 1 cap PO DAILY PRN 05/05/20 05/05/20 [Esgic 50-325-40 Capsule] Ibuprofen [Motrin] 800 mg PO Q8H PRN 05/05/20 05/05/20 Loratadine 10 mg PO DAILY 05/05/20 05/05/20 Montelukast Sodium [Singulair] 10 mg PO HS 05/05/20 05/05/20 Omeprazole 40 mg PO DAILY PRN 05/05/20 05/05/20 Previous Rx's Medication Instructions Recorded Nicotine 7Mg/24Hr Patch [Habitrol] 1 patch TRANSDERM DAILY patch 05/06/20 Ibuprofen [Motrin] 800 mg PO Q8H PRN #30 tab 05/17/24 Allergies Allergy/AdvReac Type Severity Reaction Status Date / Time Penicillins Allergy Unknown Verified 09/11/24 18:58 Childhood Review of Systems ROS Statement: Those systems with pertinent positive or pertinent negative responses have been documented in the HPI. ROS Other: All systems not noted in ROS Statement are negative. Past Medical History Past Medical History: CVA/TIA Additional Past Medical History / Comment(s): being worked up for MS. History of Any Multi-Drug Resistant Organisms: None Reported Past Surgical History: Adenoidectomy, Section, Cholecystectomy, Tonsillectomy Additional Past Surgical History / Comment(s): eye surgery Past Anesthesia/Blood Transfusion Reactions: No Reported Reaction Past Psychological History: Anxiety Smoking Status: Former smoker Past Alcohol Use History: None Reported Past Drug Use History: None Reported General Exam Limitations: no limitations Course Vital Signs 09/11/24 09/11/24 18:52 22:46 Temperature 97.8 F 98.2 F Pulse Rate 83 76 Respiratory 22 16 Rate Blood Pressure 130/81 105/73 O2 Sat by Pulse 99 98 Oximetry Chest Pain MDM - MDM Was pt. sent in by a medical professional or institution (, PA, LICENSED PRACTICAL NURSE, urgent care, hospital, or jail...) When possible be specific @ -[No] Did you speak to anyone other than the patient for history (EMS, parent, family, police, friend...)? What history was obtained from this source @ -[No] Did you review nursing and triage notes (agree or disagree)? Why? @ -[I reviewed and agree with nursing and triage notes] Were old charts reviewed (outside hosp., previous admission, EMS record, old EKG, old radiological studies, urgent care reports/EKG's, jail records)? Report findings @ -[No old charts were reviewed] Differential Diagnosis (chest pain, altered mental status, abdominal pain women, abdominal pain men, vaginal bleeding, weakness, fever, dyspnea, syncope, headache, dizziness, GI bleed, back pain, seizure, CVA, palpatations, mental health, musculoskeletal)? @ -[not applicable] EKG interpreted by me (3pts min.). @ -Yes and demonstrates sinus rhythm with a rate of 77. MS interval 157. QRS 90. QTc of 387. No acute ST segment elevations or depressions X-rays interpreted by me (1pt min.). @ -[None done] CT interpreted by me (1pt min.). @ -[None done] U/S interpreted by me (1pt. min.). @ -[None done] What testing was considered but not performed or refused? (CT, X-rays, U/S, labs)? Why? @ -[None] What meds were considered but not given or refused? Why? @ -[None] Did you discuss the management of the patient with other professionals (professionals i.e. , PA, LICENSED PRACTICAL NURSE, lab, RT, psych nurse, mental health social worker, commercial front load operator, teacher, department of natural resources officer, medical case manager)? Give summary @ -[No] Was smoking cessation discussed for >3mins.? @ -[No] Was critical care preformed (if so, how long)? @ -[No] Were there social determinants of health that impacted care today? How? (Homelessness, low income, unemployed, alcoholism, drug addiction, transportation, low edu. Level, literacy, decrease access to med. care, fdc, rehab)? @ -[No] Was there de-escalation of care discussed even if they declined (Discuss DNR or withdrawal of care, Hospice)? DNR status @ -[No] What co-morbidities impacted this encounter? (DM, HTN, Smoking, COPD, CAD, Cancer, CVA, ARF, Chemo, Hep., AIDS, mental health diagnosis, sleep apnea, morbid obesity)? @ -[None] Was patient admitted / discharged? Hospital course, mention meds given and route, prescriptions, significant lab abnormalities, going to OR and other pertinent info. @ -[hospital course] Undiagnosed new problem with uncertain prognosis? @ -[No] Drug Therapy requiring intensive monitoring for toxicity (Heparin, Nitro, Insulin, Cardizem)? @ -[No] Were any procedures done? @ -[No] Diagnosis/symptom? @ -[default] Acute, or Chronic, or Acute on Chronic? @ -[default] Uncomplicated (without systemic symptoms) or Complicated (systemic symptoms)? @ -[default] Side effects of treatment? @ -[No] Exacerbation, Progression, or Severe Exacerbation? @ -[No] Poses a threat to life or bodily function? How? (Chest pain, [place], [place], pneumonia, PE, COPD, DKA, ARF, appy, cholecystitis, CVA, Diverticulitis, Homicidal, Suicidal, threat to staff... and all critical care pts) @ -[No] Disposition Clinical Impression: Chest pain Disposition: HOME SELF-CARE Condition: Stable Instructions (If sedation given, give patient instructions): Chest Pain (ED) Additional Instructions: Please try the Medrol Dosepak if your symptoms do not improve. Follow-up with your doctor in 2 to 4 days and return for any new or worsening symptoms Is patient prescribed a controlled substance at d/c from ED?: No Referrals: Markel Shankar DO [REFERRING] - 1-2 days Pool Gonzales MD [Primary Care Provider] - 1-2 days Sharlene March DO [REFERRING] - 1-2 days Radha Gibson DO [REFERRING] - 1-2 days Time of Disposition: 22:34
[2024-09-11 22:51] VITALS: BP 105/73; PULSE 76; RESP 16; TEMP 98.2
[2024-09-11] MEDS: KETOROLAC 15 MG/ML 1 ML VIAL IVP STA (22:51)
== END 2024-09-11 23:02 | disposition home or self-care (01) ==
LOC: EC 18:39
DX: R07.9 Chest pain, unspecified (principal); Z86.73 Personal history of transient ischemic attack (TIA), and cerebral infarction without residual deficits; Z87.891 Personal history of nicotine dependence
CPT/HCPCS: 99285; 96374; 36415; 93005; 85379; 80053; 83735; 84484; 85025; 85610; 85730; 71046; J1885